=== PATIENT | female | born 1960 | race African-American/Black ===

== ENCOUNTER 2019-01-12 15:12 | Emergency (ER) | payer OTHER ==
[~2019-01-12] VITALS: Ht 167.6 cm; Wt 106.6 kg
[~2019-01-12 15:12] MED LIST: CIPROFLOXACIN500 M1 PO; FLEXERIL PO; PERCOCET 5-3251 EACH PO
[2019-01-12 15:42] LABS: URINE BILIRUBIN NEGATIVE (Negative); URINE BLOOD NEGATIVE (Negative); URINE CLARITY CLEAR; URINE COLOR YELLOW; URINE GLUCOSE-RANDOM* NEGATIVE (Negative); URINE KETONES NEGATIVE (Negative); URINE LEUKOCYTES-REFLEX 2+ (Negative); URINE NITRITE-REFLEX NEGATIVE (Negative); URINE PROTEIN (DIPSTICK) NEGATIVE (Negative); URINE UROBILINOGEN 0.2 E.U./dl (0.2-1.0)
[2019-01-12] MEDS ORDERED: METFORMIN HCL500 MG PO (15:52)
[2019-01-12] MEDS ORDERED: ZESTORETIC 20-1 EAC3 PO (15:53)
[2019-01-12] MEDS ORDERED: KAPSPARGO SPRI100 MG PO (15:53)
[2019-01-12 15:54] LABS: BACTERIA-REFLEX None Seen /HPF (None Seen); CASTS None Seen /LPF (None Seen); CRYSTALS None Seen /LPF (None Seen); SQUAMOUS 4-10 Moderate /LPF (0-3); URINE RBC None Seen /HPF (0-2); URINE WBC-REFLEX 6-15 Few /HPF (0-5)
[2019-01-12] MEDS ORDERED: LIPITOR10 MG PO (15:54)
[2019-01-12] MEDS ORDERED: ASPIR 8181 MG PO (15:54)
--- NOTE | 2019-01-12 16:48 | EKG ---
[address] [address] ELECTROCARDIOGRAM REPORT Name: ABDIAZIZ LOZANO Room #: [facility]#: [id number] ������������������ Admission: 01/12/19 ������������������ Attend Phys: Discharge: ������������������ Date of : 64 Report #: [id number] ����������������������������������������������������������������� [id number] THIS REPORT FOR: //name// [facility] ED Test Date: 2019-01-12 Test Time: 15:55:47 Pat Name: ABDIAZIZ LOZANO Department: Room: Gender: F Table Cover Folder: : 1960 Requested By: Adriana Newsome Order Number: [id number] MD: Rush Cueto Measurements Intervals [place] Rate: 101 P: 41 NM: 167 QRS: 5 QRSD: 86 T: 1 QT: 344 QTc: 446 Interpretive Statements Sinus tachycardia No previous ECG available for comparison Electronically Signed On 01-12-2019 16:48:43 [employer] by Rush Cueto [email or web address] ��������������������������������������������� <ELECTRONICALLY SIGNED> ���������������������������������������� By: Rush Cueto MD ��������������������������������������������� 01/12/19 1648 1555 1555 Rush Cueto MD /EPI
[2019-01-12 17:06] LABS: ABSOLUTE NEUTROPHILS 7.3 thou/uL (1.4-8.2); BASOPHILS 0.5 % (0.0-2.0); EOSINOPHILS 0.5 % (0.0-3.0); HEMATOCRIT 39.7 % (37.0-47.0); HEMOGLOBIN 13.3 gm/dL (12.0-15.0); LYMPHOCYTES 21.5 % (24.0-44.0); MCH 28.1 pg (26.0-34.0); MCHC 33.4 g/dL (28.0-37.0); PLATELET COUNT 245 thou/uL (150-400); POLYS 69.5 % (36.0-66.0); RBC 4.72 mil/uL (4.20-5.00); RDW 16.2 % (10.5-14.5); WBC 10.5 thou/uL (4.0-11.0)
[2019-01-12 17:16] LABS: ANION GAP 7 mmol/L (7-16); BUN 14 mg/dL (7-18); CALCIUM 10.2 mg/dL (8.5-10.1); CHLORIDE 103 mmol/L (98-107); CO2 30 mmol/L (21-32); CREATININE 1.2 mg/dL (0.6-1.0); GLUCOSE 146 mg/dL (74-106); POTASSIUM 4.1 mmol/L (3.5-5.1); SODIUM 140 mmol/L (136-145)
[2019-01-12 17:22] LABS: ALBUMIN 3.9 g/dL (3.4-5.0); SGOT 17 U/L (15-37); SGPT 23 U/L (30-65); TOTAL BILIRUBIN 0.4 mg/dL (<0.1-1.0)
[2019-01-12 17:40] LABS: TROPONIN-I <0.06 ng/mL (<0.06)
[2019-01-12] MEDS ORDERED: KEFLEX500 M2 PO (17:44)
[2019-01-12 17:48] VITALS: BP 160/98
== END 2019-01-12 17:49 | disposition home or self-care (01) ==
LOC: ER 15:12
PROVIDERS: Nurse Practitioner Family
DX: N39.0 Urinary tract infection, site not specified (principal); R42 Dizziness and giddiness; E11.9 Type 2 diabetes mellitus without complications; I10 Essential (primary) hypertension; E78.5 Hyperlipidemia, unspecified